=== PATIENT | male | born 1940 | race Caucasian/White ===

== ENCOUNTER 2016-06-30 13:07 | Outpatient (CLI) | payer MEDICARE, OTHER | END 2016-06-30 13:08 | disposition critical access hospital (66) | DX: M25.562 Pain in left knee (principal); M25.561 Pain in right knee; W10.9XXA Fall (on) (from) unspecified stairs and steps, initial encounter; Z91.81 History of falling; Y92.009 Unspecified place in unspecified non-institutional (private) residence as the place of occurrence of the external cause | CPT/HCPCS: A0425; A0429 ==

== ENCOUNTER 2016-06-30 13:45 | Inpatient (IN) | payer MEDICARE, OTHER ==
[~2016-06-30 13:45] MED LIST: LACTATED RINGERS 1,000 ML IV ONE
[2016-06-30] MEDS ORDERED: MORPHINE 2 MG/ML SYRINGE IVP STA (16:12)
[2016-06-30] MEDS ORDERED: MORPHINE 2 MG/ML SYRINGE ONE (16:15)
[2016-06-30] MEDS ORDERED: SODIUM CHLORIDE 0.9% 1,000 ML IV ONE (16:26)
[2016-06-30] MEDS ORDERED: LACTATED RINGERS 1,000 ML IV ONE ×2 (21:11→23:15)
[2016-06-30] MEDS ORDERED: LIDOCAINE-MPF 2% 5 ML VIAL IM ONE (22:09)
[2016-06-30] MEDS ORDERED: ceFAZolin 1 GM VIAL IV ONE (22:09)
[2016-06-30] MEDS ORDERED: KETOROLAC 30 MG/ML VIAL IVP ONE (22:09)
[2016-06-30] MEDS ORDERED: ONDANSETRON 4 MG/2 ML VIAL IVP ONE (22:09)
[2016-06-30] MEDS ORDERED: PROPOFOL 200 MG/20 ML VIAL IVP ONE (22:09)
[2016-06-30] MEDS ORDERED: ACETAMINOPHEN 1,000 MG/100 ML VIAL IV ONE (22:09)
[2016-06-30] MEDS ORDERED: DEXAMETHASONE 4 MG/ML VIAL IVP ONE (22:09)
[2016-06-30] MEDS ORDERED: ePHEDrine 50 MG/ML AMP IVP ONE (22:09)
[2016-06-30] MEDS ORDERED: METOPROLOL 5 MG/5 ML VIAL IVP ONE (22:09)
[2016-06-30] MEDS ORDERED: PHENYLEPHRINE 10 MG/ML VIAL IV ONE (22:09)
[2016-06-30] MEDS ORDERED: HYDROmorphone 1 MG/ML SYRINGE IVP ONE (22:09)
[2016-06-30] MEDS ORDERED: MIDAZOLAM 2 MG/2 ML VIAL IVP ONE (22:09)
[2016-06-30] MEDS ORDERED: BUPIVACAINE 0.25%-EPI 1:200000 PF 10 ML VIAL SUBQ ONE (22:32)
[2016-07-01] MEDS ORDERED: LACTATED RINGERS 1,000 ML IV ONE (00:05)
[2016-07-01] MEDS ORDERED: BUPIVACAINE 0.25%-EPI 1:200000 PF 10 ML VIAL SUBQ ONE (00:11)
[2016-07-01] MEDS ORDERED: ONDANSETRON 4 MG/2 ML VIAL IVP PRN (00:38)
[2016-07-01] MEDS ORDERED: ACETAMINOPHEN 1,000 MG/100 ML 100 ML IV PRN (00:38)
[2016-07-01] MEDS ORDERED: SENNA 8.6 MG TABLET PO PRN (00:38)
[2016-07-01] MEDS ORDERED: PROCHLORPERAZINE 10 MG/2 ML VIAL IVP PRN (00:38)
[2016-07-01] MEDS ORDERED: DOCUSATE SODIUM 100 MG CAPSULE PO PRN (00:38)
[2016-07-01] MEDS ORDERED: SODIUM CHLORIDE 0.9% 1,000 ML IV SCH (01:00)
[2016-07-01] MEDS ORDERED: ACETAMINOPHEN 325 MG TABLET PO PRN (01:00)
[2016-07-01] MEDS: ceFAZolin 2 GM/50 ML 50 ML IV SCH ×2 (02:07→09:02)
[2016-07-01] MEDS: SODIUM CHLORIDE FLUSH 0.9% 10 ML SYRINGE IVP SCH ×3 (05:20→21:55)
[2016-07-01] MEDS: oxyCOD/ACETAMIN 5 MG/325 MG TABLET PO PRN ×3 (06:13→19:28)
[2016-07-01] MEDS: LEVOTHYROXINE 100 MCG TABLET PO SCH (06:14)
[2016-07-01] MEDS: ASPIRIN 325 MG TABLET PO SCH ×2 (08:59→18:04)
[2016-07-01] MEDS: CALCIUM CARBONATE CHEW 500 MG TABLET PO SCH ×2 (08:59→20:32)
[2016-07-01] MEDS: ATENOLOL 25 MG TABLET PO SCH (09:00)
[2016-07-01] MEDS: FINASTERIDE 5 MG TABLET PO SCH (09:00)
[2016-07-01] MEDS: CELECOXIB 100 MG CAPSULE PO SCH (14:40)
[2016-07-01] MEDS: MORPHINE 2 MG/ML SYRINGE IVP PRN (22:53)
[2016-07-01] MEDS ORDERED: ZOLPIDEM 5 MG TABLET PO PRN (23:48)
[2016-07-02] MEDS: oxyCOD/ACETAMIN 5 MG/325 MG TABLET PO PRN ×5 (02:35→20:10)
[2016-07-02] MEDS: MORPHINE 2 MG/ML SYRINGE IVP PRN (03:18)
[2016-07-02] MEDS: SODIUM CHLORIDE FLUSH 0.9% 10 ML SYRINGE IVP SCH ×3 (03:18→20:10)
[2016-07-02] MEDS: LEVOTHYROXINE 100 MCG TABLET PO SCH (06:14)
[2016-07-02] MEDS: FINASTERIDE 5 MG TABLET PO SCH (08:04)
[2016-07-02] MEDS: CELECOXIB 100 MG CAPSULE PO SCH (08:04)
[2016-07-02] MEDS: ASPIRIN 325 MG TABLET PO SCH (08:04)
[2016-07-02] MEDS: CALCIUM CARBONATE CHEW 500 MG TABLET PO SCH ×2 (08:04→20:10)
[2016-07-02] MEDS: ATENOLOL 25 MG TABLET PO SCH (08:04)
[2016-07-02] MEDS: POLYETHYLENE GLYCOL 3350 17 GM PACKET PO SCH (08:10)
[2016-07-02] MEDS ORDERED: traMADol 50 MG TABLET PO PRN (13:06)
[2016-07-02] MEDS ORDERED: MAGNESIUM HYDROXIDE 2,400 MG/30 ML UDC PO ONE (14:45)
[2016-07-02] MEDS: KETOROLAC 30 MG/ML VIAL IVP PRN (16:47)
[2016-07-02] MEDS: HYDROmorphone 1 MG/ML SYRINGE IVP PRN (16:50)
[2016-07-03] MEDS: oxyCOD/ACETAMIN 5 MG/325 MG TABLET PO PRN ×2 (00:01→15:27)
[2016-07-03] MEDS: HYDROmorphone 1 MG/ML SYRINGE IVP PRN (02:49)
[2016-07-03] MEDS: SODIUM CHLORIDE FLUSH 0.9% 10 ML SYRINGE IVP PRN ×2 (02:49→11:36)
[2016-07-03] MEDS: KETOROLAC 30 MG/ML VIAL IVP PRN ×2 (05:25→11:36)
[2016-07-03] MEDS: SODIUM CHLORIDE FLUSH 0.9% 10 ML SYRINGE IVP SCH (05:26)
[2016-07-03] MEDS: LEVOTHYROXINE 100 MCG TABLET PO SCH (06:41)
[2016-07-03] MEDS: FINASTERIDE 5 MG TABLET PO SCH (08:27)
[2016-07-03] MEDS: ATENOLOL 25 MG TABLET PO SCH (08:27)
[2016-07-03] MEDS: CALCIUM CARBONATE CHEW 500 MG TABLET PO SCH (08:27)
[2016-07-03] MEDS: POLYETHYLENE GLYCOL 3350 17 GM PACKET PO SCH (08:28)
== END 2016-07-03 15:30 | DRG 502 ==
PROC: 0LMM0ZZ Reattachment of Left Upper Leg Tendon, Open Approach (ICD-10-PCS; principal; 2016-06-30 20:30)
PROC: 0LML0ZZ Reattachment of Right Upper Leg Tendon, Open Approach (ICD-10-PCS; principal; 2016-06-30 20:30)
DX: S76.112A Strain of left quadriceps muscle, fascia and tendon, initial encounter (principal); S76.111A Strain of right quadriceps muscle, fascia and tendon, initial encounter; W10.9XXA Fall (on) (from) unspecified stairs and steps, initial encounter; Y92.009 Unspecified place in unspecified non-institutional (private) residence as the place of occurrence of the external cause; M70.42 Prepatellar bursitis, left knee; I10 Essential (primary) hypertension; E03.9 Hypothyroidism, unspecified; N40.0 Benign prostatic hyperplasia without lower urinary tract symptoms; J30.2 Other seasonal allergic rhinitis; R20.0 Anesthesia of skin; R20.2 Paresthesia of skin

== ENCOUNTER 2016-07-03 15:39 | Outpatient (CLI) | payer MEDICARE, OTHER | END 2016-07-03 15:40 | DX: S76.112A Strain of left quadriceps muscle, fascia and tendon, initial encounter (principal); S76.111A Strain of right quadriceps muscle, fascia and tendon, initial encounter; W18.39XA Other fall on same level, initial encounter | CPT/HCPCS: A0425; A0428 ==

== ENCOUNTER 2017-05-14 08:00 | Outpatient (CLI) | payer MEDICARE, OTHER | END 2017-05-14 08:01 | disposition home or self-care (01) | LOC: LAB.R 08:00 | PROVIDERS: ATTEND Orthopaedic Surgery | DX: M76.899 Other specified enthesopathies of unspecified lower limb, excluding foot (principal) | CPT/HCPCS: 85651; 86140; 87070; 87205; 89051 ==

== ENCOUNTER 2017-05-14 09:40 | Inpatient (IN) | payer MEDICARE, OTHER ==
[2017-05-14] MEDS ORDERED: SODIUM CHLORIDE FLUSH 0.9% 10 ML SYRINGE IVP PRN ×2 (10:08→14:58)
[2017-05-14] MEDS ORDERED: MORPHINE 2 MG/ML CARPUJECT IVP PRN ×2 (10:08→14:58)
[2017-05-14] MEDS ORDERED: ONDANSETRON 4 MG/2 ML VIAL IVP PRN ×2 (10:08→14:58)
--- NOTE | 2017-05-14 10:34 | HISTORY & PHYSICAL EXAMINATION ---
Chief Complaint - Chief Complaint Chief Complaint: Left knee swelling History of Present Illness - Admitted From Admitted From:: Ortho clinic - History Obtained From Records Reviewed: yes History obtained from: chart review, patient Exam Limitations: none - History of Present Illness HPI Comment/Other: Irvin De La Torre is a 77-year old white male with a past medical history of hypothyroidism, BPH, post-TURP, previous fall involving bilateral knee injuries , and hypertension. Late last week he had a busy day with physical therapy, playing racMowdo, and a massage. Later that day he began to notice left knee swelling and increased pain. He phoned Dr. Abbasi who drained a small amount of fluid, which provided relief. On Saturday (05/14/17) he developed a fever, but did not record the actual value. Today he went back to see Dr. Abbasi who obtained more fluid from his left knee and recommended IV antibiotics with I&D. The patient denies SOB, chest pain, N/V or dizziness. He admits to a dry cough for about one week, but believes this is due to chronic allergies. He will be admitted to observation with plans to undergo surgery today with Dr. Dawson for a left knee I&D, IV antibiotics. 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 - Family & Social History Family History: Mother: , Cancer, Father: , Cancer, Sister: Alive and Well, , Cancer Living arrangement: At home Living Situation: With spouse/s.o. 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 He has been retired for quite a few years and is very active at a local gym, plays racMowdo, gets together with friends socially. He has been to his , Yael for the past 48 years. Yael has profound short term memory loss which causes her to have anxiety, she no longer drives and suffers from agoraphobia. They have one daughter together. He denies tobacco, illicit drug use, but admits to social drinking of 2-3 beers per day. He wishes to be a FULL code. - Substance History Use: Uses substance without health or social issues: NONE Abuse: Recurrent use of substance despite neg consequences: NONE Dependence: Experiences withdrawal or developed tolerances: NONE - POLST Patient has POLST: No POLST Status: Full Code Meds/Allgy - Home Medications Home Medications: Ambulatory Orders Medication Instructions Recorded Confirmed Cetirizine [ZyrTEC] 10 mg PO DAILY PRN 06/30/16 05/14/17 Finasteride [Proscar] 5 mg PO DAILY 06/30/16 05/14/17 Levothyroxine Sodium 150 mcg PO DAILY 06/30/16 05/14/17 Testosterone [Fortesta] 10 mg TOP DAILY 07/01/16 05/14/17 Acetaminophen [Tylenol] 650 - 975 mg PO Q4HR PRN #0 tablet 07/03/16 05/14/17 Aspirin EC [Ecotrin] 325 mg PO DAILY #60 tablet 07/03/16 05/14/17 Nadolol [Corgard] 40 mg PO DAILY 05/14/17 05/14/17 - Allergies Allergies/Adverse Reactions: Allergies Allergy/AdvReac Type Severity Reaction Status Date / Time No Known Drug Allergies Allergy Verified 06/30/16 13:53 Review of Systems - Constitutional Constitutional: reports: Fever, Chills - Eyes Eyes: reports: Corrective lenses - Ears, Nose & Throat Ears, Nose & Throat: reports: Nasal congestion, Postnasal drainage - Gastrointestinal Gastrointestinal: reports: Reflux/heartburn - Integumentary Integumentary: reports: Dryness - All Other Systems All Other Systems: reports: Reviewed and negative Exam - Vital Signs Reviewed Vital Signs: Yes - Physical Exam General Appearance: positive: No acute distress, Alert Eyes Bilateral: positive: Normal inspection, PERRL, EOMI ENT: positive: Pharynx nml, No signs of dehydration Neck: positive: Nml inspection, Thyroid nml, No JVD, Trachea midline Respiratory: positive: Chest non-tender, No respiratory distress, Breath sounds nml Cardiovascular: positive: Regular rate & rhythm, No murmur, No gallop Peripheral Pulses: positive: 2+ Abdomen: positive: Non-tender, No organomegaly, Nml bowel sounds, No distention Skin: positive: No rash, Warm Extremities: positive: No pedal edema, Joint swelling (left knee wrapped in SHALINI wrap, warm and dry with limited ROM.), Other Neurologic/Psychiatric: positive: Oriented x3, CN's nml (2-12), Motor nml, Sensation nml, Mood/affect nml Reflexes: Bicep (R): 4+, Bicep (L): 4+, Ankle (R): 4+, Ankle (L): 4+ Conclusion/Plan - Problem List (1) Septic prepatellar bursitis of left knee Conclusion/Plan: Patient was seen in the outpatient orthopedic surgery clinic with Dr. Abbasi who aspirated his left knee and got purulent drainage. Patient was directly admitted to the hospital due to reports of a fever for a planned I & D with Dr. Dawson performing. Plan: Surgery today with Dr. Dawson to undergo a Left knee washout, I & D and IV antibiotics. (2) Hypothyroidism Conclusion/Plan: Patient has a known history of this and takes synthroid at home. He believes his TSH has not been checked in a very long time. Plan: Check TSH and continue home medications. (3) Hypertension Conclusion/Plan: Patient states he has taken Atenolol for greater than 10 years. He admits to blood pressure readings 160/80's lately, so is not sure if he should try something different. Plan: Continue home medications, and monitor blood pressure. - Lab Results Lab results reviewed: Yes Long Bones: 05/14/17 10:57 05/14/17 10:57 - EKG Results EKG Interpreted Independently: Yes Core Measures - Anticipated LOS I expect patient to be DC'd or transferred within 96 hours.: Yes - DVT/VTE - Prophylaxis VTE/DVT Device ordered at admit?: Yes VTE/DVT Prophylaxis med ordered at admit?: No Not Ordered - Medical Reason: Contraindicated - Stroke - Rehab Assessment Rehab services assessment to be ordered?: Yes - AMI - Statin at Admit Aspirin Prescribed on Admit: No Not Ordered - Medical Reason: Contraindicated
[2017-05-14] MEDS ORDERED: DEXTROSE 5%-0.45% NACL 1,000 ML IV SCH (11:00)
[2017-05-14 11:10] LABS: BASOPHILS # (AUTO) 0.1 10^3/uL (0.0-0.1); BASOPHILS % (AUTO) 0.5 %; EOSINOPHILS # (AUTO) 0.1 10^3/uL (0.0-0.7); EOSINOPHILS % (AUTO) 1.3 %; HGB - HEMOGLOBIN 16.1 g/dL (14.0-18.0); LYMPHOCYTES # (AUTO) 0.9 10^3/uL (1.5-3.5); LYMPHOCYTES % (AUTO) 9.1 %; MEAN CORPUSCULAR HEMOGLOBIN 31.4 pg (27.0-31.0); MEAN CORPUSCULAR HGB CONC 34.3 g/dL (32.0-36.0); MEAN CORPUSCULAR VOLUME 91.7 fL (80.0-94.0); MEAN PLATELET VOLUME 6.5 fL (7.4-11.4); MONOCYTES # (AUTO) 0.9 10^3/uL (0.0-1.0); MONOCYTES % (AUTO) 8.9 %; NEUTROPHILS # (AUTO) 8.2 10^3/uL (1.5-6.6); NEUTROPHILS % (AUTO) 80.2 %; PLT - PLATELET COUNT 287 10^3/uL (130-450); RED BLOOD COUNT 5.12 10^6/uL (4.70-6.10); RED CELL DISTRIBUTION WIDTH 12.7 % (12.0-15.0); WHITE BLOOD COUNT 10.2 x10^3/uL (4.8-10.8)
[2017-05-14 11:28] LABS: ALBUMIN 3.6 g/dL (3.2-5.5); ALBUMIN/GLOBULIN RATIO 0.9 (1.0-2.2); BILIRUBIN,TOTAL 0.8 mg/dL (0.2-1.0); CREATININE 1.3 mg/dL (0.6-1.2); CRP - C-REACTIVE PROTEIN 9.7 mg/dL (0-1.0); TOTAL PROTEIN 7.6 g/dL (6.7-8.2)
[2017-05-14] MEDS: VANCOMYCIN INJ 1.5 GM in SODIUM CHLORIDE 0.9% 500 ML IV SCH (11:45)
--- NOTE | 2017-05-14 12:46 | PROVIDER PROGRESS NOTE ---
Subjective - Prog Note Date Prog Note Date: 05/14/17 Prog Note Time: 12:44 - Subjective Pt reports feeling: Worse (Patient well known to my service now 10 months s/p quadraceps rupture now being admitted for septic left knee prepatellar bursitis x 3-5 days. Aspiration in clinic showed purulence. Admitted for surgical I&D. Painful swelling about left knee anteriorly and superior lateral knee without fever.) Objective - Lab Results Fish Bones: 05/14/17 10:57 05/14/17 10:57 Other Labs: Lab Results x24hrs 05/14/17 05/14/17 05/14/17 Range/Units 10:57 10:57 10:57 WBC 10.2 (4.8-10.8) x10^3/uL RBC 5.12 (4.70-6.10) 10^6/uL Hgb 16.1 (14.0-18.0) g/dL Hct 47.0 (42.0-52.0) % MCV 91.7 (80.0-94.0) fL MCH 31.4 H (27.0-31.0) pg MCHC 34.3 (32.0-36.0) g/dL RDW 12.7 (12.0-15.0) % Plt Count 287 (130-450) 10^3/uL MPV 6.5 L (7.4-11.4) fL Neut # 8.2 H (1.5-6.6) 10^3/uL Lymph # 0.9 L (1.5-3.5) 10^3/uL Warrick # 0.9 (0.0-1.0) 10^3/uL Eos # 0.1 (0.0-0.7) 10^3/uL Baso # 0.1 (0.0-0.1) 10^3/uL Absolute Nucleated RBC 0.00 x10^3/uL Nucleated RBC % 0.0 /100WBC ESR 8 (0-20) mm/Hr Sodium 136 (135-145) mmol/L Potassium 5.1 H (3.5-5.0) mmol/L Chloride 96 L (101-111) mmol/L Carbon Dioxide 27 (21-32) mmol/L Anion Gap 13.0 (6-13) BUN 19 (6-20) mg/dL Creatinine 1.3 H (0.6-1.2) mg/dL Estimated GFR (MDRD) 54 L (>89) Glucose 108 H (70-100) mg/dL Calcium 9.0 (8.5-10.3) mg/dL Total Bilirubin 0.8 (0.2-1.0) mg/dL AST 27 (10-42) IU/L ALT 34 (10-60) IU/L Alkaline Phosphatase 50 (42-121) IU/L C-Reactive Protein 9.7 H (0-1.0) mg/dL Total Protein 7.6 (6.7-8.2) g/dL Albumin 3.6 (3.2-5.5) g/dL Globulin 4.0 (2.1-4.2) g/dL Albumin/Globulin Ratio 0.9 L (1.0-2.2) - Other Results/Comments Other Results/Comments: EXAM: Left knee: 2+ swelling over prepatellar bursa as well as supreior- lateral parapatellar region, 1+ tender. Mild erythema. ROM: 10-45 degrees. Ligaments - stable. N/V ok distally Assessment/Plan - Problem List (1) Septic prepatellar bursitis of left knee Impression: Dx made from aspiration of bursa sac in clinic PLAN: To OR today for surgical I&D of bursa sac. Risk/benefit of surgery explained and questions answered. Consent signed and leg marked.
--- NOTE | 2017-05-14 13:54 | CONSULTATION NOTE ---
DATE OF SERVICE: 05/14/2017 Physician: Shyam Dawson MD REFERRING PHYSICIAN: Dr. Elroy Pastor, orthopedic service. 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 The patient apparently did well after his initial encounter with me but over the last 4 or 5 days has noted some painful swelling in the anterior aspect of his left knee. He was seen in the office by Dr. Pastor who did an aspiration of his prepatellar bursa. Aspiration did reveal a septic bursitis. The patient was subsequently admitted to the hospital and will undergo a surgical incision and drainage of his prepatellar bursa. The patient has not eaten since last evening. He has had no real fevers or shaking chills. He continues to have persistent swelling that is painful in the anterior aspect of his knee, as well as another localized area superolateral in the parapatellar region of the knee as well. PHYSICAL EXAMINATION: The patient's left knee showed a small wound in the anterior aspect of his knee where the aspiration had been done. There is no expressible fluid from the small incision. There is some surrounding erythema and swelling in the prepatellar region. No gross effusion or swelling noted within the knee joint, however. Ligaments were stable. The patient also had an area that measured about 2-3 cm superolateral in the parapatellar region, which is somewhat swollen, appears to be superficial and is somewhat tender. Knee range of motion was from about 10 degrees to 45 degrees without any pain. Again, ligaments were stable on testing. Neurovascularly, he is intact distally in the lower extremity. ASSESSMENT: Septic left knee prepatellar bursitis - diagnosed with an aspiration of the knee in the clinic. PLAN: The patient was covered with vancomycin and broad spectrum antibiotics pending the results of the culture of the aspiration done earlier. Plan on taking him to the operating room this afternoon for formal surgical incision and drainage of his prepatellar bursa as well as a lancing of this other superficial mass that he has, superolateral parapatellar region of the same knee. Risks and benefits of surgery were explained to the patient. These included but are not limited to anesthesia risks, infection, blood loss, nerve damage, deep venous thrombosis, etc. The patient's questions were answered. The patient wishes to proceed as planned. The leg has been marked. TD: 05/14/2017 13:53
[2017-05-14] MEDS ORDERED: LACTATED RINGERS 1,000 ML IV ONE (14:05)
[2017-05-14] MEDS ORDERED: BUPIVACAINE 0.5% PF 30 ML VIAL INFIL ONE (14:43)
[2017-05-14] MEDS ORDERED: fentaNYL 100 MCG/2 ML VIAL IVP ONE (14:45)
[2017-05-14] MEDS ORDERED: LABETALOL 5 MG/1 ML 20 ML MDV IV ONE (14:45)
[2017-05-14] MEDS ORDERED: ONDANSETRON 4 MG/2 ML VIAL IVP ONE (14:45)
[2017-05-14] MEDS ORDERED: PROPOFOL 200 MG/20 ML VIAL IVP ONE (14:45)
[2017-05-14] MEDS ORDERED: PROCHLORPERAZINE 10 MG/2 ML VIAL IVP PRN (14:58)
[2017-05-14] MEDS ORDERED: SENNA 8.6 MG TABLET PO PRN (14:58)
[2017-05-14] MEDS ORDERED: DOCUSATE SODIUM 100 MG CAPSULE PO PRN (14:58)
[2017-05-14] MEDS ORDERED: ACETAMINOPHEN 1,000 MG/100 ML 100 ML IV PRN (14:58)
--- NOTE | 2017-05-14 15:03 | OPERATIVE REPORT ---
Operative Report - General Admit Date: 05/14/17 Procedure Date: 05/14/17 Planned Procedure: Incision and drainage of left septic prepateallar bursitis Pre-Op Diagnosis: Septic left prepatellar bursitis Procedure Performed: Incision and drainage of left prepatellar bursitis Post Op Diagnosis: Same - Procedure Note Primary Surgeon: Isidoro Dawson Anesthesia Provider: Sandy Young Anesthesia Technique: General LMA IV Fluids (mL): 400 Estimated Blood Loss (mL): 50 Drain/Tube Type: Sachse Complications: None - Other Other Information/Narrative: TT: 24 min
--- NOTE | 2017-05-14 15:31 | ADVANCE CARE PLANNING NOTE ---
Advance Care Planning - Date/Time Date: 05/14/17 Time: 12:30 - Purpose of encounter Text: To address plans and wishes for the rest of his life. - Parties in attendance Parties in attendance: Myself and the patient Irvin De La Torre. - Decisional capacity Decisional capacity of: Patient has full decisional capacity and understands his medical conditions. 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 - Subjective/Patient's story Subjective/Patient's story: I have lived a full life, but I believe I have more life to live and do not want to leave my to fend for her self given her short term memory loss and dementia. - Objective/Medical story Objective/Medical Story: The patient wishes to be a FULL code when asked about resuscitation. We are to make all attempts using life saving measures if he is found in that situation. - Goals of Care Goals of care determinations: Goals of care is to maintain previous level of functioning which was playing [email or web address], working out, attending physical therapy and getting massages. He also wants to be relatively pain free. If live saving measures are implemented and he ends up on a ventilator or other life support, he does not want to be maintained this way. He only chooses to be a FULL code because he does not want to "leave his to fend for herself". - Plan Plan: Continue code status as FULL - Code Status Code Status: Attempt Resuscitation - Time Spent on Advance Care Planning Time spent on advance care plannin minutes.
[2017-05-14] MEDS: ACETAMINOPHEN 325 MG TABLET PO PRN (16:06)
[2017-05-14] MEDS ORDERED: SODIUM CHLORIDE FLUSH 0.9% 10 ML SYRINGE IVP SCH (17:00)
[2017-05-14] MEDS: ASPIRIN 325 MG TABLET PO SCH (17:32)
[2017-05-14] MEDS: SODIUM CHLORIDE FLUSH 0.9% 10 ML SYRINGE IVP SCH ×2 (17:33→23:36)
[2017-05-14] MEDS: oxyCOD/ACETAMIN 5 MG/325 MG TABLET PO PRN (17:33)
--- NOTE | 2017-05-14 18:15 | OPERATIVE REPORT ---
DATE OF SERVICE: 05/14/2017 Physician: Shyam Dawson MD PREOPERATIVE DIAGNOSIS: Septic left prepatellar bursitis. POSTOPERATIVE DIAGNOSIS: Septic left prepatellar bursitis. OPERATION PERFORMED: Incision, drainage and irrigation of left septic prepatellar bursitis. SURGEON: Shyam Dawson MD ANESTHESIA: General. DESCRIPTION OF PROCEDURE: The patient was taken to the operating room on the afternoon of 05/14/2017, where he was placed under general anesthetic in the supine position without any complications. A thigh pneumatic tourniquet was then placed to the left lower extremity. We then prepped and draped the leg free in the usual fashion for our procedure. After 30 seconds of gravity exsanguination, we then inflated the thigh pneumatic tourniquet to 250 mmHg pressure. We then made a skin incision over the area of swelling over the superior lateral parapatellar region. We encountered some gross purulent drainage along with some necrotic fat. Specimen was sent to pathology for Gram stain, aerobic and anaerobic cultures. We then made an anterior skin incision over the prepatellar bursal region. We encountered purulent drainage here as well. A separate specimen was obtained here and was sent for a stat Gram stain, aerobic and anaerobic cultures, as well. With digital palpation, we were able to identify that both incisions communicated with one another. We then copiously irrigated both incisions and the prepatellar bursa which had extended out superolaterally with a pulse lavage apparatus. A total of 4000 mL of irrigation solution was utilized in our washout. At the end of the procedure, we inspected the cavity of the bursa and saw no necrotic tissue present. We then inserted 1/2-inch Ernie drain through and through both anterior and lateral incisions. We then loosely closed the wounds with 3-0 nylon suture both anteriorly and laterally. We still left a Hazelton drain proud exiting both anteriorly and laterally. We then dressed the wound leg with fluffs, soft wrap, and Oscar wrap. The tourniquet was released as we were dressing the wound. TOURNIQUET TIME: 24 minutes. ESTIMATED BLOOD LOSS: 50 mL REPLACEMENT: 400 mL of crystalloid. INTRAOPERATIVE COMPLICATIONS: None. PLAN: The patient will have his drain removed in 36-48 hours when the drainage has subsided. We will cover him with vancomycin as he was started on preoperatively and we will adjust as the results of his cultures come back. TD: 05/14/2017 18:14 ORIG. SIGNED 05/15/2017@1143; REVISED TO CORRECT ACCT# 05/20/2017 [id number] [id number]
[2017-05-14] MEDS: SODIUM CHLORIDE 0.9% 1,000 ML IV SCH (19:42)
[2017-05-14] MEDS: TEMAZEPAM 15 MG CAPSULE PO PRN (21:04)
[2017-05-14] MEDS ORDERED: CETIRIZINE 10 MG TABLET PO PRN (21:11)
[2017-05-15] MEDS: oxyCOD/ACETAMIN 5 MG/325 MG TABLET PO PRN ×3 (03:27→20:43)
[2017-05-15] MEDS: SODIUM CHLORIDE 0.9% 1,000 ML IV SCH ×2 (05:39→12:27)
[2017-05-15 05:53] LABS: BASOPHILS # (AUTO) 0.1 10^3/uL (0.0-0.1); BASOPHILS % (AUTO) 1.7 %; EOSINOPHILS # (AUTO) 0.3 10^3/uL (0.0-0.7); EOSINOPHILS % (AUTO) 3.5 %; HGB - HEMOGLOBIN 14.7 g/dL (14.0-18.0); LYMPHOCYTES # (AUTO) 1.2 10^3/uL (1.5-3.5); LYMPHOCYTES % (AUTO) 15.6 %; MEAN CORPUSCULAR HEMOGLOBIN 30.6 pg (27.0-31.0); MEAN CORPUSCULAR HGB CONC 33.1 g/dL (32.0-36.0); MEAN CORPUSCULAR VOLUME 92.5 fL (80.0-94.0); MEAN PLATELET VOLUME 6.5 fL (7.4-11.4); MONOCYTES # (AUTO) 0.7 10^3/uL (0.0-1.0); MONOCYTES % (AUTO) 8.6 %; NEUTROPHILS # (AUTO) 5.6 10^3/uL (1.5-6.6); NEUTROPHILS % (AUTO) 70.6 %; PLT - PLATELET COUNT 279 10^3/uL (130-450); RED BLOOD COUNT 4.82 10^6/uL (4.70-6.10); RED CELL DISTRIBUTION WIDTH 13.1 % (12.0-15.0); WHITE BLOOD COUNT 7.9 x10^3/uL (4.8-10.8)
[2017-05-15] MEDS: LEVOTHYROXINE 75 MCG TABLET PO SCH (05:56)
[2017-05-15 06:05] LABS: HB2 TOTAL 16.2 g/dL; HEMOGLOBIN A1C 0.54 g/dL; HEMOGLOBIN A1C % 5.2 % (4.6-6.2)
[2017-05-15 06:06] LABS: ALBUMIN/GLOBULIN RATIO 0.9 (1.0-2.2); BILIRUBIN,TOTAL 0.4 mg/dL (0.2-1.0); CALCIUM 8.3 mg/dL (8.5-10.3); CREATININE 1.2 mg/dL (0.6-1.2); CRP - C-REACTIVE PROTEIN 7.7 mg/dL (0-1.0); MAGNESIUM 2.1 mg/dL (1.7-2.8); PHOSPHORUS 3.1 mg/dL (2.5-4.6); TOTAL PROTEIN 6.4 g/dL (6.7-8.2)
[2017-05-15] MEDS ORDERED: ASPIRIN EC 325 MG TABLET PO SCH (09:00)
[2017-05-15] MEDS ORDERED: NADOLOL 20 MG TABLET PO SCH (09:00)
[2017-05-15] MEDS: FINASTERIDE 5 MG TABLET PO SCH (09:53)
[2017-05-15] MEDS: PATIENT OWN MED TOP SCH (09:53)
[2017-05-15] MEDS: POLYETHYLENE GLYCOL 3350 17 GM PACKET PO SCH (09:53)
[2017-05-15] MEDS: SODIUM CHLORIDE FLUSH 0.9% 10 ML SYRINGE IVP SCH ×2 (09:54→17:11)
[2017-05-15] MEDS: ASPIRIN 325 MG TABLET PO SCH ×2 (09:54→17:10)
[2017-05-15] MEDS: VANCOMYCIN INJ 1.5 GM in SODIUM CHLORIDE 0.9% 500 ML IV SCH (11:49)
--- NOTE | 2017-05-15 11:51 | PROVIDER PROGRESS NOTE ---
Subjective - Prog Note Date Prog Note Date: 05/15/17 Prog Note Time: 11:48 - Subjective Pt reports feeling: Improved (Minimal pain. No dsistal weakness/numbness. Up on floor with minimal pain), No change Objective - Vital Signs/Intake & Output Vital Signs: Vital Signs x48h Temp Pulse Resp BP Pulse Ox 05/15/17 08:55 36.9 C 87 16 143/69 H 96 05/15/17 05:42 36.6 C 61 16 153/82 H 95 Intake & Output: Intake & Output 05/12/17 05/13/17 05/14/17 05/15/17 23:59 23:59 23:59 23:59 Intake Total 2360.000 1995 Output Total 675 890 Balance 9627.079 1523 - Lab Results Fish Bones: 05/15/17 05:37 05/15/17 05:37 Other Labs: Lab Results x24hrs 05/15/17 05/15/17 05/15/17 Range/Units 05:37 05:37 05:37 WBC (4.8-10.8) x10^3/uL RBC (4.70-6.10) 10^6/uL Hgb (14.0-18.0) g/dL Hct (42.0-52.0) % MCV (80.0-94.0) fL MCH (27.0-31.0) pg MCHC (32.0-36.0) g/dL RDW (12.0-15.0) % Plt Count (130-450) 10^3/uL MPV (7.4-11.4) fL Neut # (1.5-6.6) 10^3/uL Lymph # (1.5-3.5) 10^3/uL Amelia # (0.0-1.0) 10^3/uL Eos # (0.0-0.7) 10^3/uL Baso # (0.0-0.1) 10^3/uL Absolute Nucleated RBC x10^3/uL Nucleated RBC % /100WBC ESR 17 (0-20) mm/Hr Sodium (135-145) mmol/L Potassium (3.5-5.0) mmol/L Chloride (101-111) mmol/L Carbon Dioxide (21-32) mmol/L Anion Gap (6-13) BUN (6-20) mg/dL Creatinine (0.6-1.2) mg/dL Estimated GFR (MDRD) (>89) Glucose (70-100) mg/dL Glycated Hemoglobin 5.2 (4.6-6.2) % Estim Average Glucose 103 H (70-100) Calcium (8.5-10.3) mg/dL Phosphorus (2.5-4.6) mg/dL Magnesium (1.7-2.8) mg/dL Total Bilirubin (0.2-1.0) mg/dL AST (10-42) IU/L ALT (10-60) IU/L Alkaline Phosphatase (42-121) IU/L C-Reactive Protein (0-1.0) mg/dL B-Natriuretic Peptide 44 (5-100) pg/mL Total Protein (6.7-8.2) g/dL Albumin (3.2-5.5) g/dL Globulin (2.1-4.2) g/dL Albumin/Globulin Ratio (1.0-2.2) TSH (0.34-5.60) uIU/mL 05/15/17 05/15/17 05/15/17 Range/Units 05:37 05:37 05:37 WBC 7.9 (4.8-10.8) x10^3/uL RBC 4.82 (4.70-6.10) 10^6/uL Hgb 14.7 (14.0-18.0) g/dL Hct 44.6 (42.0-52.0) % MCV 92.5 (80.0-94.0) fL MCH 30.6 (27.0-31.0) pg MCHC 33.1 (32.0-36.0) g/dL RDW 13.1 (12.0-15.0) % Plt Count 279 (130-450) 10^3/uL MPV 6.5 L (7.4-11.4) fL Neut # 5.6 (1.5-6.6) 10^3/uL Lymph # 1.2 L (1.5-3.5) 10^3/uL Amelia # 0.7 (0.0-1.0) 10^3/uL Eos # 0.3 (0.0-0.7) 10^3/uL Baso # 0.1 (0.0-0.1) 10^3/uL Absolute Nucleated RBC 0.00 x10^3/uL Nucleated RBC % 0.0 /100WBC ESR (0-20) mm/Hr Sodium 138 (135-145) mmol/L Potassium 4.5 (3.5-5.0) mmol/L Chloride 103 (101-111) mmol/L Carbon Dioxide 27 (21-32) mmol/L Anion Gap 8.0 (6-13) BUN 18 (6-20) mg/dL Creatinine 1.2 (0.6-1.2) mg/dL Estimated GFR (MDRD) 59 L (>89) Glucose 111 H (70-100) mg/dL Glycated Hemoglobin (4.6-6.2) % Estim Average Glucose (70-100) Calcium 8.3 L (8.5-10.3) mg/dL Phosphorus 3.1 (2.5-4.6) mg/dL Magnesium 2.1 (1.7-2.8) mg/dL Total Bilirubin 0.4 (0.2-1.0) mg/dL AST 26 (10-42) IU/L ALT 30 (10-60) IU/L Alkaline Phosphatase 40 L (42-121) IU/L C-Reactive Protein 7.7 H (0-1.0) mg/dL B-Natriuretic Peptide (5-100) pg/mL Total Protein 6.4 L (6.7-8.2) g/dL Albumin 3.0 L (3.2-5.5) g/dL Globulin 3.4 (2.1-4.2) g/dL Albumin/Globulin Ratio 0.9 L (1.0-2.2) TSH 3.02 (0.34-5.60) uIU/mL - Other Results/Comments Other Results/Comments: EXAM: Dressing intact. Less pain with knee motion N/V ok distally Assessment/Plan - Problem List (1) Septic prepatellar bursitis of left knee Impression: satis post op. Cultures: no growth to date PLAN: Wiull check wound and knee tomorrow and likely pull drain, if drainage diminished. Adjust antibiotics per cultures results.
--- NOTE | 2017-05-15 18:39 | PROVIDER PROGRESS NOTE ---
Subjective - Prog Note Date Prog Note Date: 05/15/17 Prog Note Time: 17:00 - Subjective Pt reports feeling: Improved Subjective: Pantera states that there was some mix ups regarding his daily home medications, otherwise complains of a mild headache this AM that was relieved with tylenol. He denies SOB, chest pain, N/V or a new cough. Current Medications - Current Medications Current Medications: Active Medications Acetaminophen (Tylenol) 650 - 975 mg PO Q4HR PRN PRN Reason: PAIN Last Admin: 05/14/17 16:06 Dose: 325 mg Amlodipine Besylate (Norvasc) 5 mg PO DAILY [facility] Aspirin (Bridget) 325 mg PO BIDWM [facility] Last Admin: 05/15/17 17:10 Dose: 325 mg Cetirizine HCl (Zyrtec) 10 mg PO DAILY PRN PRN Reason: Nasal Congestion Docusate Sodium (Colace 100mg Capsule) 100 mg PO BID PRN PRN Reason: Constipation Last Admin: 05/14/17 21:04 Dose: 100 mg Finasteride (Proscar) 5 mg PO DAILY [facility] Last Admin: 05/15/17 09:53 Dose: 5 mg Vancomycin HCl 1.5 gm/ Sodium (Chloride) 500 mls @ 250 mls/hr IV Q24H [facility] Last Infusion: 05/15/17 14:20 Dose: Infused Acetaminophen (Ofirmev) 100 mls @ 400 mls/hr IV Q6HR PRN PRN Reason: PAIN Levothyroxine Sodium (Synthroid) 150 mcg PO QDAC [facility] Last Admin: 05/15/17 05:56 Dose: 150 mcg Morphine Sulfate (Morphine (Carpuject)) 2 mg IVP Q2HR PRN PRN Reason: PAIN Ondansetron HCl (Zofran Inj) 4 mg IVP Q6HR PRN PRN Reason: Nausea / Vomiting Oxycodone/Acetaminophen (Percocet 5 Mg/325 Mg) 1 tab PO Q4HR PRN PRN Reason: PAIN Last Admin: 05/15/17 12:57 Dose: 1 tab Patient Own Medication (Patient Own Medication) 1 each TOP DAILY [facility] Last Admin: 05/15/17 09:53 Dose: Not Given Polyethylene Glycol (Miralax) 17 gm PO DAILY [facility] Last Admin: 05/15/17 09:53 Dose: Not Given Prochlorperazine Edisylate (Compazine Inj) 10 mg IVP Q6HR PRN PRN Reason: Nausea / Vomiting Senna (Senokot) 17.2 mg PO Q12H PRN PRN Reason: Constipation Sodium Chloride (Normal Saline Flush 0.9%) 10 ml IVP 0100,0900,1700 EDILBERTO Last Admin: 05/15/17 17:11 Dose: Not Given Sodium Chloride (Normal Saline Flush 0.9%) 10 ml IVP PRN PRN PRN Reason: NEEDED PER PROVIDER ORDERS Temazepam (Restoril) 15 mg PO QPM PRN PRN Reason: Insomnia Last Admin: 05/14/17 21:04 Dose: 15 mg Cetirizine [ZyrTEC] 10 mg PO DAILY PRN 06/30/16 Finasteride [Proscar] 5 mg PO DAILY 06/30/16 Levothyroxine Sodium 100 mcg PO DAILY 06/30/16 Testosterone [Fortesta] 10 mg TOP DAILY 07/01/16 Doxazosin [Cardura] 4 mg PO QPM 05/15/17 clonazePAM [Clonazepam] 0.25 mg PO DAILY PRN 05/15/17 Objective - Vital Signs/Intake & Output Reviewed Vital Signs: Yes Vital Signs: Vital Signs x48h Temp Pulse Pulse Resp BP BP Pulse Ox 05/15/17 15:55 36.7 C 65 20 171/81 H 96 05/15/17 13:17 69 165/84 H 05/15/17 13:03 37 C 63 20 175/84 H 96 Intake & Output: Intake & Output 05/12/17 05/13/17 05/14/17 05/15/17 23:59 23:59 23:59 23:59 Intake Total 2360.000 3975.000 Output Total 675 1440 Balance 5040.919 8022.000 - Objective General Appearance: positive: No acute distress, Alert Eyes Bilateral: positive: Normal inspection, PERRL ENT: positive: ENT inspection nml, Pharynx nml, No signs of dehydration Neck: positive: Nml inspection, Thyroid nml, No JVD, Trachea midline Respiratory: positive: Chest non-tender, No respiratory distress, Breath sounds nml Cardiovascular: positive: Regular rate & rhythm, No murmur, No gallop, Decreased pulse(s) Peripheral Pulses: 2+ Radial (R), 2+ Radial (L) Abdomen: positive: Non-tender, No organomegaly, Nml bowel sounds Back: positive: Nml inspection Skin: positive: No rash, Warm, Dry, Other (general skin pigmentation is pink) Extremities: positive: Pedal edema (left only.) Neurologic/Psychiatric: positive: Oriented x3, CN's nml (2-12), Motor nml, Sensation nml, Mood/affect nml Reflexes: Bicep (R): 4+, Bicep (L): 4+ - Lab Results Fish Bones: 05/15/17 05:37 05/15/17 05:37 Other Labs: Lab Results x24hrs 05/15/17 05/15/17 05/15/17 Range/Units 05:37 05:37 05:37 WBC (4.8-10.8) x10^3/uL RBC (4.70-6.10) 10^6/uL Hgb (14.0-18.0) g/dL Hct (42.0-52.0) % MCV (80.0-94.0) fL MCH (27.0-31.0) pg MCHC (32.0-36.0) g/dL RDW (12.0-15.0) % Plt Count (130-450) 10^3/uL MPV (7.4-11.4) fL Neut # (1.5-6.6) 10^3/uL Lymph # (1.5-3.5) 10^3/uL [place] # (0.0-1.0) 10^3/uL Eos # (0.0-0.7) 10^3/uL Baso # (0.0-0.1) 10^3/uL Absolute Nucleated RBC x10^3/uL Nucleated RBC % /100WBC ESR 17 (0-20) mm/Hr Sodium (135-145) mmol/L Potassium (3.5-5.0) mmol/L Chloride (101-111) mmol/L Carbon Dioxide (21-32) mmol/L Anion Gap (6-13) BUN (6-20) mg/dL Creatinine (0.6-1.2) mg/dL Estimated GFR (MDRD) (>89) Glucose (70-100) mg/dL Glycated Hemoglobin 5.2 (4.6-6.2) % Estim Average Glucose 103 H (70-100) Calcium (8.5-10.3) mg/dL Phosphorus (2.5-4.6) mg/dL Magnesium (1.7-2.8) mg/dL Total Bilirubin (0.2-1.0) mg/dL AST (10-42) IU/L ALT (10-60) IU/L Alkaline Phosphatase (42-121) IU/L C-Reactive Protein (0-1.0) mg/dL B-Natriuretic Peptide 44 (5-100) pg/mL Total Protein (6.7-8.2) g/dL Albumin (3.2-5.5) g/dL Globulin (2.1-4.2) g/dL Albumin/Globulin Ratio (1.0-2.2) TSH (0.34-5.60) uIU/mL 05/15/17 05/15/17 05/15/17 Range/Units 05:37 05:37 05:37 WBC 7.9 (4.8-10.8) x10^3/uL RBC 4.82 (4.70-6.10) 10^6/uL Hgb 14.7 (14.0-18.0) g/dL Hct 44.6 (42.0-52.0) % MCV 92.5 (80.0-94.0) fL MCH 30.6 (27.0-31.0) pg MCHC 33.1 (32.0-36.0) g/dL RDW 13.1 (12.0-15.0) % Plt Count 279 (130-450) 10^3/uL MPV 6.5 L (7.4-11.4) fL Neut # 5.6 (1.5-6.6) 10^3/uL Lymph # 1.2 L (1.5-3.5) 10^3/uL [place] # 0.7 (0.0-1.0) 10^3/uL Eos # 0.3 (0.0-0.7) 10^3/uL Baso # 0.1 (0.0-0.1) 10^3/uL Absolute Nucleated RBC 0.00 x10^3/uL Nucleated RBC % 0.0 /100WBC ESR (0-20) mm/Hr Sodium 138 (135-145) mmol/L Potassium 4.5 (3.5-5.0) mmol/L Chloride 103 (101-111) mmol/L Carbon Dioxide 27 (21-32) mmol/L Anion Gap 8.0 (6-13) BUN 18 (6-20) mg/dL Creatinine 1.2 (0.6-1.2) mg/dL Estimated GFR (MDRD) 59 L (>89) Glucose 111 H (70-100) mg/dL Glycated Hemoglobin (4.6-6.2) % Estim Average Glucose (70-100) Calcium 8.3 L (8.5-10.3) mg/dL Phosphorus 3.1 (2.5-4.6) mg/dL Magnesium 2.1 (1.7-2.8) mg/dL Total Bilirubin 0.4 (0.2-1.0) mg/dL AST 26 (10-42) IU/L ALT 30 (10-60) IU/L Alkaline Phosphatase 40 L (42-121) IU/L C-Reactive Protein 7.7 H (0-1.0) mg/dL B-Natriuretic Peptide (5-100) pg/mL Total Protein 6.4 L (6.7-8.2) g/dL Albumin 3.0 L (3.2-5.5) g/dL Globulin 3.4 (2.1-4.2) g/dL Albumin/Globulin Ratio 0.9 L (1.0-2.2) TSH 3.02 (0.34-5.60) uIU/mL - Diagnostic Imaging Diagnostic Imaging Results: positive: Final report reviewed Assessment/Plan - Problem List (1) Hypertension Impression: Patient was previously taking atenolol at home, but claims that he "weaned" himself off. Blood pressures running high since surgery and today B/P was 171/ 81. Plan: Added Norvasc 5mg daily, and informed patient. He is agreeable to taking it. (2) Hypothyroidism Impression: Patient takes Synthroid at home and has had hypothyroidism for several years. TSH today was normal at 3.02. Plan: Continue same dose. (3) Septic prepatellar bursitis of left knee Impression: Patient is now POD #2, and had an I & D of his left knee with Dr. Dawson. Drains remain in place. Dr. Dawson is managing this. Increased swelling to LLE. Good pulse. Plan: Control pain and encourage ambulation. Patient remains on Vanco for infected left knee.
[2017-05-15] MEDS: amLODIPine 5 MG TABLET PO SCH (19:00)
[2017-05-16] MEDS: TEMAZEPAM 15 MG CAPSULE PO PRN (00:35)
[2017-05-16] MEDS: ACETAMINOPHEN 325 MG TABLET PO PRN (00:35)
[2017-05-16] MEDS: SODIUM CHLORIDE FLUSH 0.9% 10 ML SYRINGE IVP SCH ×2 (00:36→09:05)
[2017-05-16] MEDS: LEVOTHYROXINE 75 MCG TABLET PO SCH (06:22)
[2017-05-16 08:03] VITALS: BP 160/88
[2017-05-16] MEDS: FINASTERIDE 5 MG TABLET PO SCH (09:04)
[2017-05-16] MEDS: amLODIPine 5 MG TABLET PO SCH (09:05)
[2017-05-16] MEDS: ASPIRIN 325 MG TABLET PO SCH (09:05)
[2017-05-16 09:08] LABS: BASOPHILS % (AUTO) 0.4 %; EOSINOPHILS # (AUTO) 0.4 10^3/uL (0.0-0.7); EOSINOPHILS % (AUTO) 4.6 %; HGB - HEMOGLOBIN 16.2 g/dL (14.0-18.0); LYMPHOCYTES # (AUTO) 1.1 10^3/uL (1.5-3.5); LYMPHOCYTES % (AUTO) 13.9 %; MEAN CORPUSCULAR HGB CONC 33.7 g/dL (32.0-36.0); MEAN PLATELET VOLUME 6.4 fL (7.4-11.4); MONOCYTES # (AUTO) 0.5 10^3/uL (0.0-1.0); MONOCYTES % (AUTO) 5.9 %; NEUTROPHILS # (AUTO) 6.2 10^3/uL (1.5-6.6); NEUTROPHILS % (AUTO) 75.2 %; PLT - PLATELET COUNT 327 10^3/uL (130-450); RED BLOOD COUNT 5.21 10^6/uL (4.70-6.10); RED CELL DISTRIBUTION WIDTH 12.8 % (12.0-15.0); WHITE BLOOD COUNT 8.2 x10^3/uL (4.8-10.8)
[2017-05-16 09:26] LABS: ALBUMIN 3.3 g/dL (3.2-5.5); ALBUMIN/GLOBULIN RATIO 0.9 (1.0-2.2); BILIRUBIN,TOTAL 0.8 mg/dL (0.2-1.0); CALCIUM 8.7 mg/dL (8.5-10.3); CREATININE 1.2 mg/dL (0.6-1.2); CRP - C-REACTIVE PROTEIN 4.8 mg/dL (0-1.0); TOTAL PROTEIN 6.9 g/dL (6.7-8.2)
[2017-05-16] MEDS ORDERED: VANCOMYCIN 1.5 GM/NS 500 ML 1.5 GM/500 ML BAG IV SCH ×2 (11:00→12:00)
--- NOTE | 2017-05-16 11:10 | PROVIDER PROGRESS NOTE ---
Subjective - Prog Note Date Prog Note Date: 05/16/17 Prog Note Time: 11:07 - Subjective Pt reports feeling: Improved (Up walikng in left leg with minimal pain/stiffness ) Objective - Vital Signs/Intake & Output Vital Signs: Vital Signs x48h Temp Pulse Resp BP Pulse Ox 05/16/17 07:59 37.1 C 80 16 160/88 H 94 Intake & Output: Intake & Output 05/13/17 05/14/17 05/15/17 05/16/17 23:59 23:59 23:59 23:59 Intake Total 2360.000 4225.000 360 Output Total 675 1890 1925 Balance 1820.570 2173.000 -1565 - Lab Results Fish Bones: 05/16/17 08:41 05/16/17 08:41 Other Labs: Lab Results x24hrs 05/16/17 05/16/17 05/16/17 Range/Units 08:41 08:41 08:41 WBC 8.2 (4.8-10.8) x10^3/uL RBC 5.21 (4.70-6.10) 10^6/uL Hgb 16.2 (14.0-18.0) g/dL Hct 48.0 (42.0-52.0) % MCV 92.0 (80.0-94.0) fL MCH 31.0 (27.0-31.0) pg MCHC 33.7 (32.0-36.0) g/dL RDW 12.8 (12.0-15.0) % Plt Count 327 (130-450) 10^3/uL MPV 6.4 L (7.4-11.4) fL Neut # 6.2 (1.5-6.6) 10^3/uL Lymph # 1.1 L (1.5-3.5) 10^3/uL [place] # 0.5 (0.0-1.0) 10^3/uL Eos # 0.4 (0.0-0.7) 10^3/uL Baso # 0.0 (0.0-0.1) 10^3/uL Absolute Nucleated RBC 0.01 x10^3/uL Nucleated RBC % 0.1 /100WBC ESR 6 (0-20) mm/Hr Sodium 137 (135-145) mmol/L Potassium 4.4 (3.5-5.0) mmol/L Chloride 101 (101-111) mmol/L Carbon Dioxide 28 (21-32) mmol/L Anion Gap 8.0 (6-13) BUN 15 (6-20) mg/dL Creatinine 1.2 (0.6-1.2) mg/dL Estimated GFR (MDRD) 59 L (>89) Glucose 137 H (70-100) mg/dL Calcium 8.7 (8.5-10.3) mg/dL Total Bilirubin 0.8 (0.2-1.0) mg/dL AST 27 (10-42) IU/L ALT 33 (10-60) IU/L Alkaline Phosphatase 44 (42-121) IU/L C-Reactive Protein 4.8 H (0-1.0) mg/dL Total Protein 6.9 (6.7-8.2) g/dL Albumin 3.3 (3.2-5.5) g/dL Globulin 3.6 (2.1-4.2) g/dL Albumin/Globulin Ratio 0.9 L (1.0-2.2) - Other Results/Comments Other Results/Comments: EXAM: left knee - Scant fresh drainage from Ernie. minimal knee erythema or effusion. Good ROM without pain. Minimal antalgic gait on left. Drain removed at the bedside without any problem. Wounds redressed. Cultures: No growth x 2 days Assessment/Plan - Problem List (1) Septic prepatellar bursitis of left knee Impression: Satis post op. Negative cultures to date. No known exposure to fungal or TB in the past year or more PLAN: Continue dry dressing changes daily as needed. Wean off knee brace as tolerated in 2-3 days and active knee motion as tolerated. Walker ambulate - WBAT on left as he have been doing in hospital. Recommend covering with Keflex 500 mg po qid x 10 days, despite negative cultures to date. RTC (orthopedics) in 7-10 days for stitches out and clinical check of knee.
[2017-05-16] MEDS: POLYETHYLENE GLYCOL 3350 17 GM PACKET PO SCH (11:12)
[2017-05-16] MEDS: PATIENT OWN MED TOP SCH (11:12)
--- NOTE | 2017-05-16 11:48 | Discharge Plan ---
Discharge Plan Disposition: Home, Self Care Condition: Good Prescriptions: amLODIPine [Norvasc] 5 mg PO DAILY #30 tablet Cephalexin [Keflex] 500 mg PO QID 10 Days #40 capsule oxyCODONE [Roxicodone] 5 mg PO Q4-6H #25 tablet Saccharomyces Boulardii [Florastor] 250 mg PO BID 20 Days #40 capsule Diet: Regular Activity Restrictions: No Restrictions Shower Restrictions: No Driving Restrictions: No Weight Bearing: Full Weight Additional Instructions or Follow Up instructions: You were admitted for a I & D of your left knee and ongoing antibiotics. You should continue with Keflex for 10 days. See ortho surgery in 7-10 days. We found that your blood pressure has been elevated. (taken at all times of the day) Please see your PCP within a week. No Smoking: If you smoke, Please STOP! Call for help. Follow-up with: Torri Lee DO [Primary Care Provider] -
--- NOTE | 2017-05-16 11:55 | DISCHARGE SUMMARY ---
Discharge Summary Discharge Date: 05/16/17 Discharging Provider: MARISSA Perry Code Status: Attempt Resuscitation Condition at Discharge: Good Discharge Disposition: 01 Home, Self Care - DIAGNOSES Admission Diagnoses: Septic prepatellar bursitis of left knee (M71.162) Hypertension (I10) Hypothyroidism (E03.9) Discharge Diagnoses with Status of Each Condition: Septic prepatellar bursitis of left knee (M71.162) ongoing, improved. Antibiotics to continue. Hypertension (I10) chronic, new medication prescribed due to uncontrolled in the hospital. Hypothyroidism (E03.9) stable, chronic. - HPI History of Present Illness: Irvin De La Torre is a 77-year old white male with a past medical history of hypothyroidism, BPH, post-TURP, previous fall involving bilateral knee injuries , and hypertension. Late last week he had a busy day with physical therapy, playing [employer] and a massage. Later that day he began to notice left knee swelling and increased pain. He phoned Dr. Abbasi who drained a small amount of fluid, which provided relief. On Saturday (05/14/17) he developed a fever, but did not record the actual value. Today he went back to see Dr. Abbasi who obtained more fluid from his left knee and recommended IV antibiotics with I&D. The patient denies SOB, chest pain, N/V or dizziness. He admits to a dry cough for about one week, but believes this is due to chronic allergies. He will be admitted to observation with plans to undergo surgery today with Dr. Dawson for a left knee I&D, IV antibiotics. - CONSULTS | PROCEDURES Consultations: Orthopedic surgery, Dr. Dawson Procedures: I & D of L knee - HOSPITAL COURSE Hospital Course: The following diagnoses were prevalent during this hospital stay: (1) Hypertension- Patient was previously taking atenolol at home, but claims that he "weaned" himself off. Blood pressures running high since surgery and today B/P was 171/81. Added Norvasc 5mg daily, and informed patient. He is agreeable to taking it and this was prescribed at the time of discharge. (2) Hypothyroidism- Patient takes Synthroid at home and has had hypothyroidism for several years. TSH was normal at 3.02. Patient was continued at the same dose. (3) Septic prepatellar bursitis of left knee- Patient underwent an I & D of his left knee with Dr. Dawson. Drains remained in place and then removed by surgeon. Dr. Dawson managed the drain and incision. Patient remained with increased swelling to LLE, strong pulses and was encouraged to ambulate. Cultures obtained both in the office and during the I & D procedure remained no growth to date, but rather showed increased WBCs indicating an inflammatory process. Patient remained on IV Vanco for infected left knee that was changed to oral Keflex at the time of discharge under the discretion of orthopedic surgery. Disposition: Patient was in stable condition and obtained a ride via private car back home with and clear follow ups. He was ambulatory and did not require oxygen at the time of discharge. - ALLERGIES Allergies/Adverse Reactions: Allergies Allergy/AdvReac Type Severity Reaction Status Date / Time No Known Drug Allergies Allergy Verified 06/30/16 13:53 - MEDICATIONS Home Medications: Ambulatory Orders Medication Instructions Recorded Confirmed Cetirizine [ZyrTEC] 10 mg PO DAILY PRN 06/30/16 05/14/17 Finasteride [Proscar] 5 mg PO DAILY 06/30/16 05/14/17 Levothyroxine Sodium 100 mcg PO DAILY 06/30/16 05/15/17 Testosterone [Fortesta] 10 mg TOP DAILY 07/01/16 05/14/17 Acetaminophen [Tylenol] 650 - 975 mg PO Q4HR PRN #0 tablet 07/03/16 05/14/17 Aspirin EC [Ecotrin] 325 mg PO DAILY #60 tablet 07/03/16 05/14/17 Doxazosin [Cardura] 4 mg PO QPM 05/15/17 05/15/17 clonazePAM [Clonazepam] 0.25 mg PO DAILY PRN 05/15/17 05/15/17 Cephalexin [Keflex] 500 mg PO QID 10 Days #40 capsule 05/16/17 Saccharomyces Boulardii [Florastor] 250 mg PO BID 20 Days #40 capsule 05/16/17 amLODIPine [Norvasc] 5 mg PO DAILY #30 tablet 05/16/17 oxyCODONE [Roxicodone] 5 mg PO Q4-6H #25 tablet 05/16/17 - PHYSICAL EXAM AT DISCHARGE General Appearance: positive: No acute distress, Alert Eyes Bilateral: positive: Normal inspection, PERRL ENT: positive: ENT inspection nml, Pharynx nml, No signs of dehydration Neck: positive: Nml inspection, Thyroid nml, No JVD, Trachea midline Respiratory: positive: Chest non-tender, No respiratory distress, Breath sounds nml Cardiovascular: positive: Regular rate & rhythm, No murmur, No gallop Peripheral Pulses: positive: 2+ Abdomen: positive: Non-tender, No organomegaly, Nml bowel sounds Back: positive: Nml inspection Skin: positive: Color nml, No rash, Warm, Dry Extremities: positive: Full ROM, No pedal edema, Joint swelling Reflexes: Bicep (R): 2+, Bicep (L): 2+ - LABS Result Diagrams: 05/16/17 08:41 05/16/17 08:41 - FOLLOW UP Follow Up: Disposition: Home, Self Care Condition: Good Prescriptions: amLODIPine [Norvasc] 5 mg PO DAILY #30 tablet Cephalexin [Keflex] 500 mg PO QID 10 Days #40 capsule oxyCODONE [Roxicodone] 5 mg PO Q4-6H #25 tablet Saccharomyces Boulardii [Florastor] 250 mg PO BID 20 Days #40 capsule Diet: Regular Activity Restrictions: No Restrictions Shower Restrictions: No Driving Restrictions: No Weight Bearing: Full Weight Additional Instructions or Follow Up instructions: You were admitted for a I & D of your left knee and ongoing antibiotics. You should continue with Keflex for 10 days. See ortho surgery in 7-10 days. We found that your blood pressure has been elevated. (taken at all times of the day) Please see your PCP within a week. - TIME SPENT Time Spent in Discharge (Minutes): 45
== END 2017-05-16 13:30 | disposition home or self-care (01) | DRG 558 ==
LOC: INTOOBSV 09:40 → OBS 09:40 → OBSVTOIN 05-15 08:50 → MS2 05-15 12:41
PROVIDERS: ADMIT Nurse Practitioner; ATTEND Nurse Practitioner
PROC: 0M9P00Z Drainage of Left Knee Bursa and Ligament with Drainage Device, Open Approach (ICD-10-PCS; principal; 2017-05-14 14:30)
DX: M71.162 Other infective bursitis, left knee (principal); I10 Essential (primary) hypertension; E03.9 Hypothyroidism, unspecified; N40.0 Benign prostatic hyperplasia without lower urinary tract symptoms; J30.2 Other seasonal allergic rhinitis; Z87.828 Personal history of other (healed) physical injury and trauma; Z79.82 Long term (current) use of aspirin
CPT/HCPCS: 36415; 80053; 83036; 83735; 83880; 84100; 84443; 85025; 85651; 86140; 87070; 87205; 93005; 96365; 96366

== ENCOUNTER 2023-08-14 10:48 | Outpatient (CLI) | payer MEDICARE, OTHER ==
--- NOTE | 2023-08-15 11:04 | XRAY Report ---
PROCEDURE: Hip w/Pelvis 2-3V RT INDICATIONS: RIGHT HIP PAIN TECHNIQUE: 4 views of the hip were acquired. COMPARISON: None. FINDINGS: Bones: No fractures or dislocations. Mild degenerative changes of the bilateral hips with joint spa ce narrowing and marginal spurring. Degenerative changes of the visualized lower lumbar spine and pub ic symphysis. Diffusely decreased osseous mineralization. No suspicious bony lesions. Soft tissues: No suspicious soft tissue calcifications or masses. IMPRESSION: No acute bony abnormality. Mild degenerative changes of the bilateral hips. Reviewed by: Homer Barahona MD on 08/15/2023 11:02 AM PDT Approved by: Homer Barhaona MD on 08/15/2023 11:02 AM PDT Station ID: [id number]
== END 2023-08-14 10:49 | disposition home or self-care (01) ==
LOC: DI 10:48
PROVIDERS: ATTEND Specialist
DX: M16.0 Bilateral primary osteoarthritis of hip (principal)